=== PATIENT | male | born 2000 | race Caucasian/White ===

== ENCOUNTER 2024-03-09 15:11 | Emergency (ER) | payer MEDICAID ==
[~2024-03-09] VITALS: Ht 182.9 cm; Wt 72.0 kg
[2024-03-09 16:22] LABS: BASOPHILS % (AUTO) 0.7 % (0-1); EOSINOPHILS # (AUTO) 0.3 X10'3 (0-0.9); EOSINOPHILS % (AUTO) 4.3 % (0-6); HEMATOCRIT 43.2 % (42.0-52.0); LYMPHOCYTES # (AUTO) 1.9 X10'3 (1.1-4.8); LYMPHOCYTES % (AUTO) 29.8 % (21-51); MEAN CORPUSCULAR HEMOGLOBIN 25.9 PG (27.0-31.0); MEAN CORPUSCULAR HGB CONC 32.4 g/dL (33.0-36.5); MEAN PLATELET VOLUME 7.9 FL (7.4-10.4); MONOCYTES # (AUTO) 0.6 X10'3 (0-0.9); NEUTROPHILS # (AUTO) 3.6 X10'3 (1.8-7.7); NEUTROPHILS % (AUTO) 56.2 % (42-75); PLATELET COUNT 315 X10'3 (140-440); WHITE BLOOD COUNT 6.4 X10'3 (4.5-11.0)
[2024-03-09 16:45] LABS: ANION GAP 8 (8-16); BLOOD UREA NITROGEN 11 MG/DL (7-18); BUN/CREATININE RATIO 13.3 (10.0-20.0); CALCIUM 9.2 MG/DL (8.5-10.1); CHLORIDE 106 MMOL/L (99-107); CREATININE 0.83 MG/DL (0.60-1.10); GLUCOSE 86 MG/DL (70-104); PRO BRAIN NATRIURETIC PEPTIDE < 30 PG/ML (0-125); SODIUM 142 MMOL/L (135-145); TOTAL CARBON DIOXIDE 28.2 MMOL/L (24-32); eCRCL 143 ML/MIN; eGFR > 90 ML/MIN
[2024-03-09 18:09] VITALS: BP 127/72; PULSE 79; RESP 18; TEMP 98.6; O2SAT 98
== END 2024-03-09 18:12 | disposition home or self-care (01) ==
LOC: ER 15:12
DX: R07.89 Other chest pain (principal); R05.9 Cough, unspecified
CPT/HCPCS: 36415; 71045; 80048; 83880; 84484; 85025; 93005; 99285

== ENCOUNTER 2024-05-12 19:45 | Emergency (ER) | payer MEDICAID ==
[~2024-05-12] VITALS: Ht 182.9 cm; Wt 72.7 kg
[2024-05-12 20:03] VITALS: BP 139/89; PULSE 108; TEMP 99.1; O2SAT 99
[2024-05-12 22:18] VITALS: RESP 18
== END 2024-05-12 22:23 | disposition home or self-care (01) ==
LOC: ER 19:46
DX: N50.811 Right testicular pain (principal)
CPT/HCPCS: 76870; 93976; 99284

== ENCOUNTER 2024-05-13 17:03 | Emergency (ER) | payer MEDICAID, OTHER ==
[~2024-05-13] VITALS: Ht 182.9 cm; Wt 74.6 kg
[2024-05-13 17:49] VITALS: BP 133/73; PULSE 69; RESP 18; O2SAT 100
[2024-05-13 20:25] VITALS: TEMP 98.6
== END 2024-05-13 20:26 | disposition home or self-care (01) ==
LOC: ER 17:03
DX: S00.83XA Contusion of other part of head, initial encounter (principal); W22.8XXA Striking against or struck by other objects, initial encounter; Y93.89 Activity, other specified; Y92.89 Other specified places as the place of occurrence of the external cause; Y99.8 Other external cause status
CPT/HCPCS: 70486; 99284